=== PATIENT | female | born 1965 ===

== ENCOUNTER 2024-10-18 09:45 | Inpatient (IN) | payer OTHER ==
[~2024-10-18] VITALS: Ht 157.5 cm; Wt 112.9 kg
[2024-10-18] MEDS ORDERED: VERELAN PM300 MG PO (10:53)
[2024-10-18] MEDS ORDERED: ATACAND32 MG PO (10:54)
[2024-10-18] MEDS ORDERED: GLYXAMBI 10 MG1 EACH PO (10:56)
[2024-10-18] MEDS ORDERED: PRAVASTATIN SOD10 MG PO (10:56)
[2024-10-18 10:57] VITALS: BP 120/62
[2024-10-18] MEDS ORDERED: ACID REDUCER20 M1 PO (10:57)
[2024-10-18 11:01] VITALS: BP 140/82
[2024-10-18 11:04] LABS: HEMOGLOBIN 16.1 g/dL (12.0-15.00); MEAN CELL VOLUME 88.3 fL (80.00-100.00); MEAN CORPUSCULAR HEMOGLOBIN 29.7 pg (27.00-32.0); MEAN CORPUSCULAR HGB CONC 33.6 g/dl (32.0-36.0); PLATELET COUNT 215 K/uL (150-450); RED BLOOD COUNT 5.43 M/uL (4.00-6.00); RED CELL DISTRIBUTION WIDTH 13.4 % (11.5-14.5)
[2024-10-18 11:21] LABS: COVID-19 AG NEGATIVE (NEGATIVE)
[2024-10-18 11:51] LABS: INR 1.02; PARTIAL THROMBOPLASTIN TIME 28.5 SECONDS (22.0-34.0); PROTHROMBIN TIME 11.1 SECONDS (9.0-11.5)
[2024-10-18 11:54] LABS: ALBUMIN 3.9 gm/dL (3.4-5.0); BILIRUBIN TOTAL 0.49 mg/dL (0.3-1.2); CALCIUM 9.9 mg/dL (8.5-10.1); CHOL HDL RATIO 4.5 (0-5.0); CREATININE SERUM 0.57 mg/dL (0.55-1.02); GFR 108.19; GLOBULINA 3.4 G/DL (2.4-3.5); POTASSIUM 5.36 mEq/L (3.5-5.1); TOTAL PROTEIN 7.3 gm/dL (6.4-8.2)
[2024-10-18 12:55] LABS: RH POSITIVE
[2024-10-26] MEDS ORDERED: CEFAZOLIN SODIUM 1,000 MG VIAL ONE (08:52)
[2024-10-26] MEDS ORDERED: APIXABAN 2.5 MG TABLET PO SCH (09:00)
[2024-10-26] MEDS ORDERED: POVIDONE-IODINE 118 ML BOTT TOP ONE (10:54)
[2024-10-26] MEDS ORDERED: KETOROLAC TROMETHAMINE 60 MG VIAL IM ONE (10:54)
[2024-10-26] MEDS ORDERED: BUPIVACAINE HCL/MPF 0.5% 30ML VIAL ONE (10:54)
[2024-10-26] MEDS ORDERED: TRANEXAMIC ACID 100MG/1ML (1000MG) AMPUL IV ONE (10:55)
[2024-10-26] MEDS ORDERED: LIDOCAINE HCL 1%/EPINEPHRINE 20ML VIAL IJ ONE (10:55)
[2024-10-26] MEDS ORDERED: VANCOMYCIN HCL 1,000 MG VIAL ONE (10:55)
[2024-10-26] MEDS ORDERED: SUGAMMADEX SODIUM 200 MG/2 ML VIAL IV ONE (12:48)
[2024-10-27] MEDS ORDERED: OxyCODONE HCL 5 MG TABLET (ROXICODONE) PO PRN (04:00)
[2024-10-27] MEDS ORDERED: CEFAZOLIN SODIUM 1,000 MG VIAL IV SCH (06:00)
[2024-10-27] MEDS ORDERED: SENNOSIDES 1 TAB TABLET PO SCH (09:00)
[2024-10-27] MEDS ORDERED: ACETAMINOPHEN 500 MG GEL..CAP PO SCH (09:00)
[2024-10-27] MEDS ORDERED: IRON FUM,PS/FOLIC/BCOMP,C NO.9 1 CAP CAPSULE PO SCH (09:00)
[2024-10-27] MEDS ORDERED: GABAPENTIN 300 MG CAPSULE PO SCH (09:00)
[2024-10-27] MEDS ORDERED: SODIUM CHLORIDE 0.45 % 1,000 ML IV SCH (10:30)
[2024-10-27] MEDS ORDERED: MORPHINE SULFATE 4 MG/ML CARTRIDGE IV PRN (10:45)
[2024-10-27] MEDS ORDERED: APIXABAN 2.5 MG TABLET PO ONE (11:44)
[2024-10-27] MEDS ORDERED: IRON FUM,PS/FOLIC/BCOMP,C NO.9 1 CAP CAPSULE PO ONE (11:47)
[2024-10-27] MEDS ORDERED: GABAPENTIN 300 MG CAPSULE PO ONE (11:48)
[2024-10-27] MEDS ORDERED: ACETAMINOPHEN 500 MG GEL..CAP PO ONE (11:48)
[2024-10-27] MEDS ORDERED: CEFAZOLIN SODIUM 1,000 MG VIAL ONE (11:49)
[2024-10-27 12:19] LABS: HEMATOCRIT 40.8 % (36.0-45.00); HEMOGLOBIN 13.4 g/dL (12.0-15.00); MEAN CELL VOLUME 88.9 fL (80.00-100.00); MEAN CORPUSCULAR HEMOGLOBIN 29.3 pg (27.00-32.0); MEAN CORPUSCULAR HGB CONC 32.9 g/dl (32.0-36.0); PLATELET COUNT 156 K/uL (150-450); RED BLOOD COUNT 4.59 M/uL (4.00-6.00); RED CELL DISTRIBUTION WIDTH 13.3 % (11.5-14.5)
[2024-10-27 16:19] VITALS: BP 150/70
[2024-10-27] MEDS ORDERED: CANDESARTAN CILEXETIL 32 MG TABLET PO SCH (17:00)
[2024-10-28] VITALS: BP 139/76
[2024-10-28] MEDS ORDERED: PATIENTS OWN MEDICATION (MEDICAMENTO EN PISO) PO SCH (09:00)
[2024-10-28 09:22] VITALS: BP 140/85
[2024-10-28 10:21] LABS: HEMATOCRIT 38.8 % (36.0-45.00); HEMOGLOBIN 12.7 g/dL (12.0-15.00); MEAN CELL VOLUME 89.7 fL (80.00-100.00); MEAN CORPUSCULAR HEMOGLOBIN 29.3 pg (27.00-32.0); MEAN CORPUSCULAR HGB CONC 32.7 g/dl (32.0-36.0); PLATELET COUNT 170 K/uL (150-450); RED BLOOD COUNT 4.33 M/uL (4.00-6.00); RED CELL DISTRIBUTION WIDTH 13.3 % (11.5-14.5)
[2024-10-28 16:13] VITALS: BP 120/62
[2024-10-29 00:44] VITALS: BP 124/61
[2024-10-29] MEDS ORDERED: PERCOCET 5-3251 EACH PO (06:04)
[2024-10-29 09:17] VITALS: BP 145/74
== END 2024-10-29 15:12 | disposition home or self-care (01) | DRG 470 ==
LOC: OB/GYN 10-26 04:30 → O/R 10-26 04:30 → SURH 10-26 07:00 → OB/GYN 10-26 20:00
PROVIDERS: ADMIT Orthopaedic Surgery; ATTEND Orthopaedic Surgery
PROC: 0SRC0J9 Replacement of Right Knee Joint with Synthetic Substitute, Cemented, Open Approach (ICD-10-PCS; principal; 2024-10-26)
DX: M17.11 Unilateral primary osteoarthritis, right knee (principal)